=== PATIENT | female | born 1950 | race Caucasian/White ===

== ENCOUNTER 2024-12-10 08:16 | Outpatient (CLI) | payer MEDICARE | END 2024-12-10 08:17 | disposition home or self-care (01) | LOC: ULT 08:16 | PROVIDERS: ATTEND Family Medicine | DX: R79.89 Other specified abnormal findings of blood chemistry (principal); K80.10 Calculus of gallbladder with chronic cholecystitis without obstruction | CPT/HCPCS: 76705 ==

== ENCOUNTER 2025-06-03 10:05 | Outpatient (CLI) | payer MEDICARE | END 2025-06-03 10:06 | disposition home or self-care (01) | LOC: BICRAD 10:05 | PROVIDERS: ATTEND Family Medicine | DX: M25.471 Effusion, right ankle (principal) | CPT/HCPCS: 36415; 80053; 84550; 85025 ==